=== PATIENT | male | born 1970 | race Two or more races ===

== ENCOUNTER 2023-06-21 07:34 | Emergency (ER) | payer OTHER ==
[~2023-06-21] VITALS: Ht 165.1 cm; Wt 68.2 kg
[2023-06-21 07:36] VITALS: TEMP 98.2
[2023-06-21] MEDS ORDERED: METF-1211 PO (07:38)
[2023-06-21] MEDS: ACETAMINOPHEN 500 MG TABLET PO ONE (08:03)
[2023-06-21] MEDS: KETOROLAC TROMETHAMINE 60 MG/2 ML VIAL IM ONE (08:03)
[2023-06-21] MEDS ORDERED: IBUP-1554 PO (09:37)
[2023-06-21] MEDS ORDERED: HYDR-4723 PO (09:37)
[2023-06-21 09:55] VITALS: BP 118/70; PULSE 70; RESP 16
== END 2023-06-21 09:56 | disposition home or self-care (01) ==
LOC: EMS 07:35
DX: S83.91XA Sprain of unspecified site of right knee, initial encounter (principal); E11.9 Type 2 diabetes mellitus without complications; E78.00 Pure hypercholesterolemia, unspecified; I10 Essential (primary) hypertension; X58.XXXA Exposure to other specified factors, initial encounter; Y93.89 Activity, other specified; Y92.89 Other specified places as the place of occurrence of the external cause; Y99.8 Other external cause status
CPT/HCPCS: 99283; 29505; 73562; 96372; J1885